=== PATIENT | female | born 1990 | race Two or more races ===

== ENCOUNTER 2017-01-31 11:15 | Emergency (ER) | payer MEDICAID ==
[2017-01-31 11:21] VITALS: BP 129/70; PULSE 84; RESP 16; O2SAT 95
[2017-01-31 11:23] VITALS: TEMP 97.9
--- NOTE | 2017-01-31 11:43 | UCPHY ---
H & P Time Seen by Provider: 01/31/17 11:33 Patient Type: Established HPI/ROS: This patient has a 3 day history of sore throat moderate intensity. She has associated nasal congestion and occasional cough. She reports subjective fevers as well. The fever resolved with ibuprofen or Tylenol. She last took ibuprofen 90 minutes prior to arrival. She has associated fatigue and myalgias as well. Finally she reports earache bilaterally. She is concerned that she may have influenza and requests a test. ROS: HEENT: No drainage from her ears. She still tolerating p.o. intake despite the sore throat. Pulmonary: No pleuritic pain or dyspnea. Cardiovascular: No complaints GI: No nausea vomiting or diarrhea. 7 point ROS is otherwise negative. Past Medical/Surgical History: Obese Smoking Status: Current every day smoker Physical Exam: Physical Exam Vital signs are normal. General: No acute distress HEENT: Nose: Clear discharge bilaterally. No sinus tenderness to percussion. Ears: External canals and tympanic membranes are clear with no erythema or abnormal findings bilaterally. Oropharynx: No erythema or exudates. No dysphonia. No drooling or stridor. Eyes: Pupils equal and react to light. Extraocular motions are intact. Lungs: Clear to auscultation bilaterally with no rales, rhonchi or wheeze. No respiratory distress. Cardiac: Regular rate and rhythm with no murmur gallop or rub Skin: No rash or pallor. Neuro: Alert with no focal deficits noted. Initial differential diagnosis: Viral URI with cough, strep pharyngitis, influenza Constitutional: Initial Vital Signs Temperature (C) 36.6 C 01/31/17 11:17 Heart Rate 84 01/31/17 11:17 Respiratory Rate 16 01/31/17 11:17 Blood Pressure 129/70 H 01/31/17 11:17 O2 Sat (%) 95 01/31/17 11:17 O2 Delivery Mode Room Air Allergies/Adverse Reactions: Penicillins Allergy (Intermediate, Verified 01/31/17 11:21) HIVES AND BODY SWELLING Home Medications: Medication Instructions Recorded NK [No Known Home Meds] 01/31/17 MDM/Departure - MDM Diagnostics: Rapid influenza is negative. Rapid strep is negative. ED Course/Re-evaluation: Findings are consistent with URI with mild cough. No clinical evidence to suggest lower respiratory infection or other complicating factors. - Depart Disposition: Home, Routine, Self-Care Clinical Impression: Viral upper respiratory infection Condition: Good Instructions: Upper Respiratory Infection (ED) Additional Instructions: Diagnosis: Viral upper respiratory infection Plan: Drink plenty fluids Consider zinc supplement Ibuprofen Tylenol for discomfort Your symptoms should gradually improve over the next 3-7 days Referrals: PIERRE YOUSIF,. [Primary Care Provider] - As per Instructions - PQRS PQRS Measurement: NA
== END 2017-01-31 12:30 | disposition home or self-care (01) ==
LOC: CED 11:15
DX: J06.9 Acute upper respiratory infection, unspecified (principal); F17.200 Nicotine dependence, unspecified, uncomplicated; E66.9 Obesity, unspecified; Z88.0 Allergy status to penicillin
CPT/HCPCS: 87400-PO; 87880-PO; 99214-PO; G0463-PO

== ENCOUNTER 2017-05-09 10:19 | Emergency (ER) | payer MEDICAID ==
[2017-05-09 10:28] VITALS: BP 111/80; PULSE 80; RESP 20; TEMP 98.6; O2SAT 97
--- NOTE | 2017-05-09 10:40 | EDPHY ---
H & P Time Seen by Provider: 05/09/17 10:25 HPI/ROS: CHIEF COMPLAINT: "I need a work note" HISTORY OF PRESENT ILLNESS: The patient is a 26-year-old female who presents to the emergency department requesting a work note. The patient states that she went to him use a park all day Monday and then had a cookout on Monday. She felt as though she was dehydrated. She developed a mild headache. She went to work this morning and felt nauseated. She had a single episode of emesis. She was told to come to the emergency department for a note to go back to work. Patient denies any complaints at this time. She has no headache or neck pain. No fevers or chills. No dysuria frequency. No abdominal pain. She no longer has any nausea. No recent travel or antibiotic use. She denies focal deficit. No recent trauma. Patient states she thinks she drinks too much soda. REVIEW OF SYSTEMS: My complete review of systems is negative except as mentioned in the HPI. Past Medical/Surgical History: Negative Past surgical history: Includes tonsillectomy, appendectomy Social history: The patient does not smoke. Smoking Status: Current every day smoker Constitutional: Initial Vital Signs Temperature (C) 37 C 05/09/17 10:23 Heart Rate 80 05/09/17 10:23 Respiratory Rate 20 05/09/17 10:23 Blood Pressure 111/80 05/09/17 10:23 O2 Sat (%) 97 05/09/17 10:23 O2 Delivery Mode Room Air Allergies/Adverse Reactions: Penicillins Allergy (Intermediate, Verified 05/09/17 10:28) HIVES AND BODY SWELLING Home Medications: Medication Instructions Recorded NK [No Known Home Meds] 01/31/17 Medical Decision Making ED Course/Re-evaluation: In the emergency department I discussed possible etiologies with the patient. At this time the patient has no complaints. Her exam is unremarkable. I do not feel the patient needs imaging or laboratory studies at this time. The patient feels comfortable with this plan. She was given warnings will return if her symptoms worsen. Differential Diagnosis: My differential includes but is not limited to dehydration, small-bowel obstruction, perforation, pancreatitis, cholecystitis, subarachnoid hemorrhage meningitis, encephalitis Departure - Departure Disposition: Home, Routine, Self-Care Clinical Impression: Headache Qualifiers: Headache type: unspecified Headache chronicity pattern: acute headache Intractability: not intractable Qualified Code(s): R51 - Headache Vomiting Qualifiers: Vomiting type: unspecified Vomiting Intractability: non-intractable Nausea presence: with nausea Qualified Code(s): R11.2 - Nausea with vomiting, unspecified Condition: Good Instructions: General Headache (ED), Acute Nausea and Vomiting (ED) Additional Instructions: Return with increasing abdominal pain, fever, vomiting or any other concerns. Referrals: Katiana Gamboa MD [Medical Doctor] - 5-7 days, call for appt. Stand Alone Forms: Work Excuse
== END 2017-05-09 10:50 | disposition home or self-care (01) ==
LOC: CED 10:19
DX: R51 Headache (principal); R11.2 Nausea with vomiting, unspecified; F17.200 Nicotine dependence, unspecified, uncomplicated

== ENCOUNTER 2017-07-26 09:28 | Emergency (ER) | payer MEDICAID ==
[2017-07-26 09:39] VITALS: BP 116/77; PULSE 65; RESP 16; TEMP 98.2; O2SAT 97
--- NOTE | 2017-07-26 10:18 | EDPHY ---
H & P Time Seen by Provider: 07/26/17 09:36 HPI/ROS: This patient has right ear pain that she describes as moderate intensity pressure in nature for 3 days duration. She was in a hot tub the day before the symptoms started and wonders if she might have swimmer's ear. She notes associated or achy feeling lymph nodes in the right anterior cervical region and a sore throat of moderate intensity that started over the past 2 days worsens with swallowing. She reports partial improvement from Advil and notes no other exacerbating or alleviating factors. She arrived here with her boyfriend by private vehicle. ROS: No high fevers or chills. She has had subjective fevers Monday and Monday that seemed to resolve. HEENT: Some nasal congestion no sinus pain. No dysphonia. No drainage from the ear. Pulmonary: No cough Cardiovascular: No complaints GI: No abdominal pain, nausea or vomiting. 7 point ROS is otherwise negative. Past Medical/Surgical History: Past surgical history: Tonsils and adenoids Smoking Status: Former smoker Physical Exam: Physical Exam Vital signs are normal. General: No acute distress HEENT: Nose: Clear bilaterally. No sinus tenderness to percussion. Ears: External canals and tympanic membranes are clear with no erythema bilaterally. In the right ear. She does appear to have a small clear effusion. Oropharynx : No erythema or exudates. No dysphonia. No drooling or stridor. Eyes: Pupils equal and react to light. Extraocular motions are intact. No conjunctival injection or discharge. Neck: Supple with no meningismus. Mild right anterior cervical lymphadenopathy Lungs: Clear to auscultation bilaterally with no rales, rhonchi or wheeze. No respiratory distress. Cardiac: Regular rate and rhythm with no murmur gallop or rub Skin: No rash or pallor. Neuro: Alert with no focal deficits noted. ROS: Viral pharyngitis, strep pharyngitis, serous otitis, URI Constitutional: Initial Vital Signs Temperature (C) 36.8 C 07/26/17 09:36 Heart Rate 65 07/26/17 09:36 Respiratory Rate 16 07/26/17 09:36 Blood Pressure 116/77 07/26/17 09:36 O2 Sat (%) 97 07/26/17 09:36 O2 Delivery Mode Room Air Allergies/Adverse Reactions: Penicillins Allergy (Intermediate, Verified 05/09/17 10:28) HIVES AND BODY SWELLING Home Medications: Medication Instructions Recorded Fluticasone Nasal [Flonase Nasal 2 sprays NASAL DAILY #1 mdi 07/26/17 [place] (RX)] MDM/Departure - MDM Diagnostics: Rapid strep is negative. - Depart Disposition: Home, Routine, Self-Care Clinical Impression: Viral pharyngitis Serous otitis media Qualifiers: Chronicity: acute Laterality: right Recurrence: not specified as recurrent Qualified Code(s): H65.01 - Acute serous otitis media, right ear Condition: Good Instructions: Pharyngitis (ED) Additional Instructions: Diagnoses: 1. Serous otitis 2. Viral pharyngitis Your strep test is negative. Plan: Drink plenty fluids Humidifier Ibuprofen Tylenol for pain Flonase steroid nasal spray Return for any significant worsening despite the treatment plan. Prescriptions: Fluticasone Nasal [Flonase Nasal [place] (RX)] 2 sprays NASAL DAILY #1 mdi Referrals: PIERRE YOUSIF,Radha [Primary Care Provider] - As per Instructions
== END 2017-07-26 10:25 | disposition home or self-care (01) ==
LOC: CED 09:28
DX: H65.01 Acute serous otitis media, right ear (principal); J02.8 Acute pharyngitis due to other specified organisms; B97.89 Other viral agents as the cause of diseases classified elsewhere; Z87.891 Personal history of nicotine dependence
CPT/HCPCS: 87880-PO

== ENCOUNTER 2017-08-16 09:05 | Emergency (ER) | payer MEDICAID ==
[2017-08-16 09:12] VITALS: RESP 18; TEMP 98.6
[2017-08-16] MEDS ORDERED: IBUPROFEN 600 MG TAB PO ONE (09:17)
[2017-08-16] MEDS ORDERED: LET GEL TOPICAL 1 EA SYR TP ONE ×2 (09:34→09:40)
[2017-08-16] MEDS ORDERED: TDAP ADULT 0.5 ML INJ (BOOSTRIX) IM ONE (09:49)
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
[2017-08-16 10:30] VITALS: BP 123/83; PULSE 78; O2SAT 96
== END 2017-08-16 10:29 | disposition home or self-care (01) ==
LOC: CED 09:05
DX: S61.315A Laceration without foreign body of left ring finger with damage to nail, initial encounter (principal); S60.142A Contusion of left ring finger with damage to nail, initial encounter; J45.909 Unspecified asthma, uncomplicated; Z23 Encounter for immunization; Z87.891 Personal history of nicotine dependence; W23.1XXA Caught, crushed, jammed, or pinched between stationary objects, initial encounter; Y92.69 Other specified industrial and construction area as the place of occurrence of the external cause; Y99.0 Civilian activity done for income or pay; Y93.89 Activity, other specified
CPT/HCPCS: 73140-PO